=== PATIENT | female | born 1975 | race Caucasian/White ===

== ENCOUNTER 2019-09-30 03:46 | Emergency (ER) | payer MEDICAID ==
[~2019-09-30] VITALS: Ht 157.5 cm; Wt 75.5 kg
[~2019-09-30 03:46] MED LIST: [UNRECOGNIZED DRUG - REMARK]
[2019-09-30 04:05] VITALS: BP 113/74
--- NOTE | 2019-09-30 04:29 | NUR ---
44 Y/O FEMALE C/O COUGH, BACK PAIN, CHEST HURTS WHEN SHE COUGHS FOR ALMOST A MONTH. PER PATIENT, PAIN IS A 9/10 ACUTE PAIN; COUGH IS DRY AND NON PRODUCTIVE. LUNG SOUNDS CLEAR/DIMINISHED ANTERIOR/POSTERIOR BILATERALLY; RR:16; 98% ON RA. DENIES N/V/D/FEVER/CHILLS. ERMD MADE AWARE. DAUGHTER AT BEDSIDE. PLACED ON MONITOR. WILL CONTINUE TO MONITOR. PMH:DENIES RX:DENIES NKDA
--- NOTE | 2019-09-30 04:29 | NUR ---
PT TO BED #8 BY MIKE
[2019-09-30] MEDS ORDERED: ACETAMIN/CODEINE 120/12MG-5ML 5 ML UDC PO ONE (05:55)
[2019-09-30] MEDS ORDERED: predniSONE 20 MG TAB PO ONE (05:55)
[2019-09-30 06:23] VITALS: BP 111/64
--- NOTE | 2019-09-30 06:23 | NUR ---
Patient discharged with v/s stable. Written and verbal after care instructions given and explained. Patient alert, oriented and verbalized understanding of instructions. Ambulatory with steady gait. All questions addressed prior to discharge. ID band removed. Patient advised to follow up with PMD. Rx of GUAIATUSSIN AND PREDNISONE WAS given. Patient educated on indication of medication including possible reaction and side effects. Opportunity to ask questions provided and answered.
== END 2019-09-30 06:23 | disposition home or self-care (01) ==
LOC: MED 03:46
DX: J20.9 Acute bronchitis, unspecified (principal)
CPT/HCPCS: 71045; 93005; 99283; J7512; Q0092

== ENCOUNTER 2020-10-19 15:13 | Emergency (ER) | payer MEDICAID ==
[~2020-10-19] VITALS: Ht 154.9 cm; Wt 83.5 kg
[2020-10-19 15:25] VITALS: BP 138/89
--- NOTE | 2020-10-19 15:58 | NUR ---
PT [facility] TO [facility]
[2020-10-19] MEDS ORDERED: KETOROLAC 60 MG/2 ML VIAL IM ONE (16:05)
[2020-10-19] MEDS ORDERED: ALUMINUM HYD/MAG/SIMETHICONE 30 ML UDC PO ONE (16:05)
[2020-10-19 16:54] LABS: APPEARANCE,URINE CLEAR (CLEAR); BILIRUBIN,URINE NEGATIVE (NEGATIVE); BLOOD, URINE 2+ (NEGATIVE); COLOR,URINE YELLOW (YELLOW); LEUKOCYTE ESTERASE ,URINE NEGATIVE (NEGATIVE); NITRITE, URINE NEGATIVE (NEGATIVE); UGLUCOSE NEGATIVE (NEGATIVE)
[2020-10-19 17:14] LABS: WBC,URINE 0-5 /HPF (0-5)
[2020-10-19 17:17] LABS: ALBUMIN 3.2 g/dL (3.4-5.0); ANION GAP 14.6 (8-16); CREATININE 0.9 mg/dL (0.6-1.3); POTASSIUM 3.6 mmol/L (3.5-5.1); TOTAL BILIRUBIN 0.1 mg/dL (0.0-1.0)
[2020-10-19 17:31] LABS: BASOPHILS # (AUTO) 0.1 K/uL (0.00-0.22); BASOPHILS % (AUTO) 0.5 % (0.0-2.0); EOSINOPHILS # (AUTO) 0.1 K/uL (0-0.4); EOSINOPHILS % (AUTO) 1.6 % (0.0-4.0); HEMATOCRIT 32.9 % (36-48); HEMOGLOBIN 10.5 g/dL (12.0-16.0); LYMPHOCYTES # (AUTO) 2.4 K/uL (2.5-16.5); LYMPHOCYTES % (AUTO) 25.1 % (20.5-51.1); MEAN CORPUSCULAR HEMOGLOBIN 27 pg (27-31); MEAN CORPUSCULAR HGB CONC 32 g/dL (33-37); MEAN CORPUSCULAR VOLUME 85.3 fL (80-94); MONOCYTES # (AUTO) 0.8 K/uL (0.8-1.0); MONOCYTES % (AUTO) 8.7 % (1.7-9.3); NEUTROPHILS % (AUTO) 64.1 % (42.2-75.2); PLATELET COUNT (AUTO) 346 K/uL (140-450); RED BLOOD CELL COUNT(AUTO) 3.86 MIL/uL (4.20-5.40); RED CELL DISTRIBUTION WIDTH 15.3 % (11.6-13.7); WHITE BLOOD COUNT (AUTO) 9.4 K/uL (4.8-10.8)
--- NOTE | 2020-10-19 17:35 | NUR ---
PT TRANSFERED TO BED 6. PT ALERT AND AWAKE, BREATHING EVEN AND UNLABORED. NO DISTRESS NOTED. PT STATES THAT SHE IS FEELING BETTER WITH PAIN.
--- NOTE | 2020-10-19 17:40 | NUR ---
45 YEAR OLD FEMALE COMPLAINS OF RIGHT SIDED FLANK PAIN X 3 DAYS. PT STATES SHE ALSO HAS BURNING ON URINATION. PT DENIES N/V/D. PT DENIES CP. PT AOX4, BREATHING EVEN AND UNLABORED, SKIN WARM AND DRY. BED IN LOWEST POSITION, LOCKED, BED RAIL UPX1. PMH - DENIES ALLERGIES - NKA
[2020-10-19 18:15] VITALS: BP 121/87
--- NOTE | 2020-10-19 18:15 | NUR ---
Patient discharged with v/s stable. Written and verbal after care instructions about flank pain and uti given and explained. Patient alert, oriented and verbalized understanding of instructions. Ambulatory with steady gait. All questions addressed prior to discharge. ID band removed. Patient advised to follow up with PMD. Rx of zofran, naprosyn, keflex given. Patient educated on indication of medication including possible reaction and side effects. Opportunity to ask questions provided and answered.
== END 2020-10-19 18:15 | disposition home or self-care (01) ==
LOC: MED 15:13
DX: N39.0 Urinary tract infection, site not specified (principal); R11.0 Nausea
CPT/HCPCS: 36415; 76705; 80053; 81001; 81025; 83690; 85025; 87086; 96372; 99284; J1885

== ENCOUNTER 2020-11-09 21:43 | Emergency (ER) | payer MEDICAID ==
[~2020-11-09] VITALS: Ht 162.6 cm; Wt 81.6 kg
[2020-11-09 22:10] VITALS: BP 159/89
--- NOTE | 2020-11-09 22:10 | NUR ---
TO TENT #04 AMBULATORY
--- NOTE | 2020-11-09 22:20 | NUR ---
SEEN AND EXAMINED BY LORRAINE WITH ORDERS, CARRIED OUT
--- NOTE | 2020-11-09 22:25 | NUR ---
SWAB DONE AND SENT TO LAB
[2020-11-09 22:30] VITALS: BP 159/89
--- NOTE | 2020-11-09 22:30 | NUR ---
Patient discharged with v/s stable. Written and verbal after care instructions given and explained. Patient alert, oriented and verbalized understanding of instructions. Ambulatory with steady gait. All questions addressed prior to discharge. ID band removed. Patient advised to follow up with PMD. Rx of NAPROSYN, ACETAMINOPHINE given. Patient educated on indication of medication including possible reaction and side effects. Opportunity to ask questions provided and answered.
== END 2020-11-09 22:30 | disposition home or self-care (01) ==
LOC: MED 21:43
DX: M79.10 Myalgia, unspecified site (principal); Z20.828 Contact with and (suspected) exposure to other viral communicable diseases
CPT/HCPCS: 99283; U0003

== ENCOUNTER 2022-10-12 19:29 | Emergency (ER) | payer MEDICAID ==
--- NOTE | 2022-10-12 20:45 | NUR ---
Patient left prior to triage.
== END 2022-10-12 20:45 | disposition left against medical advice (07) ==
LOC: MED 19:29
DX: R05.9 Cough, unspecified (principal); Z53.21 Procedure and treatment not carried out due to patient leaving prior to being seen by health care provider

== ENCOUNTER 2022-10-15 14:28 | Emergency (ER) | payer MEDICAID ==
[~2022-10-15] VITALS: Ht 157.5 cm; Wt 81.2 kg
[2022-10-15 14:52] VITALS: BP 135/94
[2022-10-15] MEDS ORDERED: IBUP-2213 PO (16:11)
[2022-10-15] MEDS ORDERED: SUD30 PO (16:11)
[2022-10-15] MEDS ORDERED: ALBU0.0912 INH (16:11)
[2022-10-15] MEDS ORDERED: PROM118S5 PO (16:11)
--- NOTE | 2022-10-15 16:20 | NUR ---
C/O PRODUCTIVE COUGH X5DAYS NKA PMH: ARTHRITIS
[2022-10-15 16:27] VITALS: BP 135/94
--- NOTE | 2022-10-15 16:27 | NUR ---
Patient discharged with v/s stable. Written and verbal after care instructions ABOUT HERNANDEZ given and explained. Patient alert, oriented and verbalized understanding of instructions. Ambulatory with steady gait. All questions addressed prior to discharge. ID band removed. Patient advised to follow up with PMD. Rx of ALBUTEROL, IBUPROFEN, PROMETHAZINE DM, SUDAFED given. Patient educated on indication of medication including possible reaction and side effects. Opportunity to ask questions provided and answered.
== END 2022-10-15 16:27 | disposition home or self-care (01) ==
LOC: MED 14:28
DX: J06.9 Acute upper respiratory infection, unspecified (principal); M19.90 Unspecified osteoarthritis, unspecified site; Z79.1 Long term (current) use of non-steroidal anti-inflammatories (NSAID); Z79.899 Other long term (current) drug therapy
CPT/HCPCS: 99283

== ENCOUNTER 2023-06-21 13:19 | Emergency (ER) | payer MEDICAID ==
[~2023-06-21] VITALS: Ht 167.6 cm; Wt 72.6 kg
[~2023-06-21 13:19] MED LIST changes: +ALBU0.0912 INH; +IBUP-2213 PO; +PROM118S5 PO; +SUD30 PO
[2023-06-21 13:52] VITALS: BP 105/75; PULSE 97; RESP 18; TEMP 97.3; O2SAT 97
[2023-06-21] MEDS ORDERED: KETOROLAC 30 MG/ML VIAL IM ONE (14:20)
[2023-06-21] MEDS ORDERED: DICL20GE TP (16:18)
[2023-06-21] MEDS ORDERED: ACET-10509 PO (16:18)
[2023-06-21 16:53] VITALS: BP 110/75; PULSE 88; RESP 18; TEMP 98; O2SAT 98
--- NOTE | 2023-06-21 16:53 | NUR ---
Patient discharged with v/s stable. Written and verbal after care instructions FOR HEEL SPUR given and explained. Patient alert, oriented and verbalized understanding of instructions. Wheel Chair Assisted with to car. All questions addressed prior to discharge. ID band removed. Patient advised to follow up with PMD. Rx of TYLENOL XTRA STRENGTH AND DICLOFENAC SODIUM given. Opportunity to ask questions provided and answered. COPY OF XRAY AND WORK NOTE PROVIDED
--- NOTE | 2023-06-21 17:28 | NUR ---
The patient's care was reviewed and supervised by [facility], RN.
== END 2023-06-21 16:53 | disposition home or self-care (01) ==
LOC: MED 13:19
DX: M76.891 Other specified enthesopathies of right lower limb, excluding foot (principal); M76.892 Other specified enthesopathies of left lower limb, excluding foot; M79.10 Myalgia, unspecified site; Z79.899 Other long term (current) drug therapy
CPT/HCPCS: 73562; 73630; 90471; 90715; 96372; 99284; J1885

== ENCOUNTER 2024-07-13 18:54 | Emergency (ER) | payer MEDICAID, OTHER ==
[~2024-07-13] VITALS: Ht 137.2 cm; Wt 75.3 kg
[~2024-07-13 18:54] MED LIST changes: +ACET500T99 PO; +DICL20GE TP
[2024-07-13 19:26] VITALS: BP 124/83; PULSE 98; RESP 14; TEMP 97.6; O2SAT 99
[2024-07-13 22:07] LABS: BASOPHILS % (AUTO) 0.3 % (0.0-2.0); EOSINOPHILS # (AUTO) 0.1 K/uL (0-0.4); EOSINOPHILS % (AUTO) 1.3 % (0.0-4.0); HEMATOCRIT 37.3 % (36-48); HEMOGLOBIN 12.3 g/dL (12.0-16.0); LYMPHOCYTES # (AUTO) 3.2 K/uL (2.5-16.5); LYMPHOCYTES % (AUTO) 44.2 % (20.5-51.1); MEAN CORPUSCULAR HEMOGLOBIN 30 pg (27-31); MEAN CORPUSCULAR HGB CONC 33 g/dL (33-37); MEAN CORPUSCULAR VOLUME 89.9 fL (80-94); MONOCYTES # (AUTO) 0.5 K/uL (0.8-1.0); MONOCYTES % (AUTO) 7.3 % (1.7-9.3); NEUTROPHILS # (AUTO) 3.4 K/uL (1.8-7.7); NEUTROPHILS % (AUTO) 46.9 % (42.2-75.2); PLATELET COUNT (AUTO) 241 K/uL (140-450); RED BLOOD CELL COUNT(AUTO) 4.14 MIL/uL (4.20-5.40); RED CELL DISTRIBUTION WIDTH 17.6 % (11.6-13.7); WHITE BLOOD COUNT (AUTO) 7.3 K/uL (4.8-10.8)
[2024-07-13 22:13] LABS: ANION GAP 12.9 (8-16); CARBON DIOXIDE 27.5 mmol/L (21-32); CHLORIDE 104 mmol/L (98-107); CREATININE 0.9 mg/dL (0.6-1.3); GFR ARICAN-AMERICAN 85 mL/min (>90); GFR NON ARICAN-AMERICAN 70 mL/min (>90); GLUCOSE 98 mg/dL (74-106); POTASSIUM 3.4 mmol/L (3.5-5.1); SODIUM SERUM 141 mmol/L (136-145); UREA NITROGEN, BLOOD 15 mg/dL (7-18)
[2024-07-13] MEDS ORDERED: DICYCLOMINE HCL LIQUID 10 MG/5 ML UDC ONE (22:15)
[2024-07-13] MEDS ORDERED: ALUMINUM HYD/MAG/SIMETHICONE 30 ML UDC ONE (22:15)
[2024-07-13] MEDS: DICYCLOMINE HCL LIQUID 20 MG, ALUMINUM HYD/MAG/SIMETHICONE 30 ML, LIDOCAINE VISCOUS 2% ... PO ONE (22:19)
[2024-07-13 22:22] LABS: ALANINE AMINOTRANSFERASE 33 U/L (12-78); ALBUMIN 3.6 g/dL (3.4-5.0); ALKALINE PHOSPHATASE 89 U/L (50-136); ASPARTATE AMINOTRANSFERASE 18 U/L (15-37); LIPASE 67 U/L (16-77); TOTAL BILIRUBIN 0.1 mg/dL (0.0-1.0); TOTAL PROTEIN, SERUM 7.8 g/dL (6.4-8.2)
[2024-07-13] MEDS: KETOROLAC 30 MG/ML VIAL IM ONE (22:23)
[2024-07-13] MEDS ORDERED: PANT40EC PO (22:43)
== END 2024-07-13 23:00 | disposition home or self-care (01) ==
LOC: MED 18:54
DX: R51.9 Headache, unspecified (principal); R10.13 Epigastric pain; M79.18 Myalgia, other site; Z79.899 Other long term (current) drug therapy
CPT/HCPCS: 36415; 71045; 80053; 83690; 84484; 85025; 93005; 96372; 99285; J1885